=== PATIENT | female | born 1960 | race Caucasian/White ===

== ENCOUNTER 2024-03-27 22:58 | Outpatient (REF) | payer MEDICARE, SELFPAY ==
[2024-03-27 22:31] LABS: TSH (W/Ref FT4) 1.07 uIU/mL (0.36-3.74)
[2024-03-28 22:43] LABS: Estradiol 46 pg/mL (See Note); Progesterone 7.2 ng/mL (See Table)
[2024-03-30 10:03] LABS: FSH 59.6 mIU/mL (See Note)
[2024-03-30 10:05] LABS: LH 33.9 mIU/mL (See Note)
[2024-04-07 09:40] LABS: Testosterone, Free 4.14 ng/dL (<0.13-0.84); Testosterone, Total 232 ng/dL (8-60)
== END 2024-03-27 22:59 | disposition home or self-care (01) ==
LOC: LBN 22:58
PROVIDERS: PCP Nurse Practitioner Family; Visit Provider Nurse Practitioner Family
DX: N95.1 Menopausal and female climacteric states (principal)
CPT/HCPCS: 84402; 84403; 82670; 83001; 83002; 84144; 84443